=== PATIENT | female | born 2000 | race Caucasian/White ===

== ENCOUNTER 2022-02-05 22:20 | Observation (INO) | payer MEDICAID, OTHER ==
[~2022-02-05] VITALS: Ht 162.6 cm; Wt 69.4 kg
[2022-02-06] MEDS ORDERED: PREN-96 PO (02:14)
== END 2022-02-06 02:33 | disposition home or self-care (01) ==
LOC: LDRP 22:20
PROVIDERS: ADMIT Obstetrics & Gynecology; ATTEND Obstetrics & Gynecology
DX: O42.913 Preterm premature rupture of membranes, unspecified as to length of time between rupture and onset of labor, third trimester (principal); O99.891 Other specified diseases and conditions complicating pregnancy; M54.50 Low back pain, unspecified; R10.30 Lower abdominal pain, unspecified; O26.893 Other specified pregnancy related conditions, third trimester; N89.8 Other specified noninflammatory disorders of vagina; Z3A.28 28 weeks gestation of pregnancy; Z79.899 Other long term (current) drug therapy; W01.0XXA Fall on same level from slipping, tripping and stumbling without subsequent striking against object, initial encounter; Y93.89 Activity, other specified; Y92.89 Other specified places as the place of occurrence of the external cause; Y99.8 Other external cause status
CPT/HCPCS: 59025; 76815; 81002; 82948; 84112; 94760; G0378; Q0114

== ENCOUNTER 2022-04-11 12:37 | Observation (INO) | payer MEDICAID, OTHER ==
[~2022-04-11 12:37] MED LIST: PREN-96 PO
== END 2022-04-11 15:09 | disposition home or self-care (01) ==
LOC: LDRP 12:37
PROVIDERS: ADMIT Obstetrics & Gynecology Obstetrics; ATTEND Obstetrics & Gynecology Obstetrics
DX: O47.1 False labor at or after 37 completed weeks of gestation (principal); Z3A.38 38 weeks gestation of pregnancy
CPT/HCPCS: 59025; 81002; 84112; 94760; G0378; Q0114

== ENCOUNTER 2022-06-06 20:21 | Emergency (ER) | payer OTHER ==
[~2022-06-06] VITALS: Ht 162.6 cm; Wt 76.7 kg
[2022-06-06] MEDS ORDERED: ACETAMINOPHEN 325 MG TAB PO ONE (21:00)
[2022-06-06] MEDS ORDERED: SODIUM CHLORIDE 0.9% 250 ML IV ONE (22:45)
[2022-06-06] MEDS ORDERED: cefTRIAXone 1GM/50ML D5W 50 ML IV ONE (22:45)
[2022-06-07] MEDS ORDERED: DIC250C PO (00:05)
[2022-06-07 00:10] VITALS: BP 110/67
== END 2022-06-07 00:11 | disposition home or self-care (01) ==
LOC: ER 20:21
DX: N61.0 Mastitis without abscess (principal)
CPT/HCPCS: 76642; 96365; 99284; J0696; J7050